=== PATIENT | male | born 1990 | race Caucasian/White ===

== ENCOUNTER 2016-10-13 14:17 | Observation (INO) | payer OTHER ==
--- NOTE | ~2016-10-13 | CT2 ---
[facility] A Service of [facility] RADIOLOGY TEXT RESULTS PATIENT: MARCO TAI LOCATION: [facility] : 91 UNIT #: [id number] AGE: [address]: Jaz Hansen MD SEX: M ORDER DR: [id number] [facility] [address] [place], [place] [address] [id number] I MR#: [id number] Acc #: [id number] NAME: MARCO TAI : 1990 SEX: M STUDY DATE/TIME: 10/13/2016 16:20 UNIT: [facility] ROOM: 221 STUDY DESCRIPTION: CT Abd and Pelv W Cont Attending Physician: Jaz Hansen M.D. Ordering Physician: Kwadwo Guzman M.D. Primary Care Physician: David Fontanez M.D. MEDICAL IMAGING REPORT This report is preliminary unless electronic signature is present EXAM CT abdomen and pelvis with contrast INDICATION Right lower quadrant abdominal pain beginning yesterday. PROCEDURE Contrast-enhanced CT of the abdomen and pelvis. 100 mL of Isovue-370. This CT examination was performed with one or more of the following radiation dose reduction techniques: automatic exposure control, adjustment of mA and/or kV according to patient size, and iterative reconstruction. COMPARISON None. FINDINGS ABDOMEN WITH CONTRAST: Included lung bases are clear. Liver measures 22.2 cm. Hepatic steatosis. The spleen, kidneys, adrenal glands, pancreas, gallbladder unremarkable. The bowel loops are nondilated. The appendix is prominent measuring up to 9 mm. It shows mild inflammatory change. No abscess. PELVIS WITH CONTRAST: No pelvic mass or fluid. No aggressive appearing bone lesion. IMPRESSION 1. Mild or early acute appendicitis. No evidence for abscess. 2. Hepatomegaly with steatosis. Dictated by... Haris Ghosh M.D. [facility] A Service of [facility] RADIOLOGY TEXT RESULTS PATIENT: MARCO TAI LOCATION: [facility] : 91 UNIT #: [id number] AGE: [address]: Jaz Hansen MD SEX: M ORDER DR: THIS IS AN ELECTRONICALLY VERIFIED REPORT Haris Ghosh M.D. at 10/14/2016 7:40 AM SHAGUFTA/sapphire TD: 10/14/2016 06:34 JOB #: [id number] MEDICAL IMAGING REPORT Page 1 of 1 COPY
--- NOTE | ~2016-10-13 | HP ---
Unit #: [id number] #: [id number] Patient: MARCO TAI [id number] [address] [place], [place] [address] [id number] I MR#: [id number] NAME: MARCO TAI ROOM: 221 Age: 26 Sex: M Admission Date: 10/13/2016 : 1990 Attending Physician: Jaz Hansen M.D. Primary Care Physician: David Fontanez M.D. HISTORY AND PHYSICAL CHIEF COMPLAINT Abdominal pain. PRESENT ILLNESS The patient is a 26-year-old white male who was normally in good health up until two days ago when he developed some vague central abdominal pains. The pain became worse and he presented to the emergency room yesterday with complaints of nausea, vomiting and central abdominal pain. Since then, the pain shifted more to the right lower quadrant of his abdomen. He has had no previous similar symptoms. He has had no recent URI, no urinary tract symptoms and no other illnesses. PAST MEDICAL HISTORY Serious illnesses - none. PAST SURGICAL HISTORY Surgery in the past - he has had nasal surgery. Also, history of a pelvic fracture that was minor. MEDICATIONS None chronic. ALLERGIES None known. TRANSFUSION None in the past. FAMILY HISTORY Noncontributory. SOCIAL HISTORY The patient is single, lives at home with his family, has a normally good appetite. No recent weight change. he smokes approximately a pack of cigarettes per day. He is a nondrinker. Immunizations are up-to-date. REVIEW OF SYSTEMS Twelve system review has been performed which is unremarkable except for that noted in present illness. PHYSICAL EXAMINATION VITAL SIGNS: Temperature on admission 97.9, pulse 84, respirations 16, Unit #: [id number] #: [id number] Patient: MARCO TAI blood pressure 141/85. GENERAL DESCRIPTION: The patient is a well developed, muscular 26-year-old white male in no acute distress. HEENT: Unremarkable. NECK: Supple. CHEST: There is equal bilateral expansion with bilateral equal breath sounds. LUNGS: Clear bilaterally. HEART: Regular rhythm without murmurs or gallops. There is no evidence of cardiomegaly clinically. ABDOMEN: Soft. Mild to moderately tender in the right lower quadrant without mass or organomegaly. There is no gross abdominal distention. No guarding or rebound. No evidence of ascites or hernias. Active bowel sounds are present. EXTREMITIES: Full range of motion without limitations. There is no evidence of peripheral edema. BACK EXAM: No CVA tenderness. NEUROLOGIC: Grossly intact. DIAGNOSTIC STUDIES LABORATORY: White blood cell count on admission was 17,600. Hemoglobin 16.9. Chemistries were normal. IMAGING: CT revealed evidence of probable early appendicitis without perforation or abscess formation. IMPRESSION The patient has early appendicitis. PLAN I am going to go ahead with laparoscopic appendectomy under general anesthesia. I have discussed this surgery including the risks including that of bleeding, infection and abscess formation. The patient understands and consents. Dictated by Chris Sierra Jr., M.D. FLAKO/marco antonio TD: 10/14/2016 06:26 JOB #: [id number] HISTORY AND PHYSICAL Page 1 of 1 X Chris Sierra MD X HISTORY AND PHYSICAL
--- NOTE | ~2016-10-13 | OR ---
Unit #: [id number] #: [id number] Patient: MARCO TAI [id number] [address] [place], [place] [address] [id number] I MR#: [id number] NAME: MARCO TAI ROOM: 221 Date of Procedure: 10/14/2016 Admission Date: 10/13/2016 Surgeon: Flo Chapman M.D. : 1990 Attending Physician: Chris Sierra Jr., M.D. Primary Care Physician: David Fontanez M.D. OPERATIVE REPORT PREOPERATIVE DIAGNOSIS Appendicitis. POSTOPERATIVE DIAGNOSIS Appendicitis. PROCEDURE PERFORMED Laparoscopic appendectomy. SPECIAL EDUCATION INSTRUCTOR Leif Roldan M.D. ANESTHESIA General endotracheal anesthesia. ESTIMATED BLOOD LOSS 100 mL. IV FLUIDS 800 crystalloid. COMPLICATIONS None. INDICATIONS FOR PROCEDURE The patient is a 26-year-old gentleman who presents with what appears to be appendicitis. DESCRIPTION OF PROCEDURE The patient was taken to the operating theater and placed in supine position. General anesthesia was induced. The abdomen was prepped and draped. An infraumbilical incision was then made. A Veress needle was placed intra-abdominally. The abdomen was insufflated to 15 mmHg with CO2. I then placed a 5-mm port in the umbilicus. I then placed a right lower quadrant 10 mm, left lower quadrant 5 mm. General inspection of the abdomen revealed some yellowish infected type fluid. The appendix was identified. This was somewhat retroperitoneal. I was able to mobilize this without too much difficulty with Bovie electrocautery. I then mobilized it free of its surrounding adhesions. DENNIS stapler was fired across the mesoappendix as well as the base of the appendix. There was some hemorrhage from the appendiceal artery. This was controlled with some 10 mm clips. We then irrigated thoroughly with normal saline. I Unit #: [id number] #: [id number] Patient: MARCO TAI placed the appendix in an Endobag and removed this. We then removed our ports, closed the fascia with 0 Vicryl and skin with 4-0 Vicryl. The patient tolerated the procedure well and sent to recovery room in good condition. Dictated by... Michelle CunhaO/ruslan TD: 10/15/2016 05:15 JOB #: [id number] OPERATIVE REPORT Page 1 of 1 X Flo Chapman MD PROCEDURE OPERATIVE NOTE
--- NOTE | ~2016-10-13 | DS ---
Unit #: [id number] #: [id number] Patient: MARCO TAI [id number] [address] [address] [id number] I MR#: [id number] NAME: MARCO TAI ROOM: 221 Age: 26 Sex: M Admission Date: 10/13/2016 : 1990 Discharge Date: 10/15/2016 Attending Physician: Chris Sierra Jr., M.D. Primary Care Physician: David Fontanez M.D. DISCHARGE SUMMARY DIAGNOSIS Appendicitis. PROCEDURE Laparoscopic appendectomy. HOSPITAL COURSE The patient is a 26-year-old gentleman who suffered with appendicitis. He underwent laparoscopic appendectomy. Postop course was uncomplicated. DISPOSITION The patient will be discharged home. RECOMMENDATIONS He is to follow a regular diet as tolerated. ACTIVITY Activity levels were discussed. FOLLOWUP He is to follow up with Dr. Chapman in two weeks. MEDICATIONS Medications are his regular home medications and [place] 7.5 mg q.4 p.r.n. Dictated by... Michelle Cunha/marco antonio TD: 10/15/2016 11:43 JOB #: [id number] Unit #: [id number] #: [id number] Patient: MARCO TAI DISCHARGE SUMMARY Page 1 of 1 X Flo Chapman MD X DISCHARGE SUMMARY
[2016-10-13 15:08] LABS: BASOPHIL# 0.1 X10e3 (0-0.3); BASOPHIL% 0.5 % (0-2.5); EOSINOPHIL% 0.3 % (0.0-7.0); HEMATOCRIT 49.3 % (38.0-50.0); HEMOGLOBIN 16.9 gm/dL (13.0-16.0); LYMPHOCYTE# 1.4 X10e3 (1.0-3.5); LYMPHOCYTE% 8.1 % (17.0-45.0); MEAN CELL VOLUME 89.2 FL (83-96); MEAN CORPUSCULAR HEMOGLOBIN 30.5 PG (28-34); MEAN CORPUSCULAR HGB CONC 34.3 g/dL (30-36); MEAN PLATELET VOLUME 8.9 FL (6.5-11.5); MONOCYTE# 0.8 X10e3 (0-1.0); MONOCYTE% 4.6 % (3.0-12.0); NEUTROPHIL# 15.2 X10e3 (1.5-7.1); NEUTROPHIL% 86.5 % (40-75); PLATELET COUNT 210 X10e3 (140-420); RED BLOOD COUNT 5.52 X10e (3.90-5.60); RED CELL DISTRIBUTION WIDTH 12.3 % (11.0-15.5); WHITE BLOOD COUNT 17.6 X10e3 (4.0-10.5)
[2016-10-13 15:10] LABS: DIFF IND YES
[2016-10-13 15:28] LABS: ALBUMIN SERUM 4.8 g/dL (3.5-5.0); BILIRUBIN, DIRECT 0.1 mg/dL (0.0-0.2); BILIRUBIN,INDIRECT 0.6 mg/dL (0.0-0.9); BILIRUBIN,TOTAL 0.7 mg/dL (0.2-2.0); BUN/CREATININE RATIO 11.53; CALCIUM SERUM 9.5 mg/dL (8.4-10.2); CREATININE SERUM 1.3 mg/dL (0.6-1.4); GLOM FILT RATE Estimated 75.9 mL/min (>60); POTASSIUM 3.9 mmol/L (3.5-5.1); PROTEIN TOTAL SERUM 8.2 g/dL (6.0-8.3)
[2016-10-13 15:29] LABS: PLATELET ESTIMATE NORMAL (NORMAL); RBC NORMAL YES
[2016-10-13 16:46] LABS: URINE SOURCE CLEAN CATCH
[2016-10-13 16:50] LABS: URINE APPEARANCE CLEAR; URINE BILIRUBIN NEG (NEG); URINE BLOOD NEG (NEG); URINE COLOR YELLOW; URINE GLUCOSE NEG (NEG); URINE KETONE NEG (NEG); URINE LEUKOCYTE ESTERASE NEG (NEG); URINE NITRATE NEG (NEG); URINE PROTEIN NEG (NEG); URINE UROBILINOGEN 0.2 MG/DL (NEG)
[2016-10-13 16:53] LABS: CULTURE INDICATED? NO
[2016-10-13] MEDS ORDERED: NO MEDICATIONS (17:16)
[2016-10-14 06:58] LABS: BASOPHIL% 0.4 % (0-2.5); EOSINOPHIL# 0.2 X10e3 (0-0.7); EOSINOPHIL% 1.4 % (0.0-7.0); HEMATOCRIT 45.5 % (38.0-50.0); HEMOGLOBIN 15.5 gm/dL (13.0-16.0); MEAN CELL VOLUME 90.1 FL (83-96); MEAN CORPUSCULAR HEMOGLOBIN 30.7 PG (28-34); MEAN PLATELET VOLUME 9.1 FL (6.5-11.5); MONOCYTE# 0.8 X10e3 (0-1.0); MONOCYTE% 7.3 % (3.0-12.0); NEUTROPHIL# 7.4 X10e3 (1.5-7.1); NEUTROPHIL% 64.9 % (40-75); PLATELET COUNT 180 X10e3 (140-420); RED BLOOD COUNT 5.05 X10e (3.90-5.60); RED CELL DISTRIBUTION WIDTH 12.7 % (11.0-15.5); WHITE BLOOD COUNT 11.3 X10e3 (4.0-10.5)
[2016-10-14 07:04] LABS: DIFF IND NO
[2016-10-14 16:32] LABS: HEMATOCRIT 45.6 % (38.0-50.0); HEMOGLOBIN 15.5 gm/dL (13.0-16.0)
[2016-10-15 06:13] LABS: HEMATOCRIT 41.6 % (38.0-50.0); MEAN CELL VOLUME 89.7 FL (83-96); MEAN CORPUSCULAR HEMOGLOBIN 30.2 PG (28-34); MEAN CORPUSCULAR HGB CONC 33.7 g/dL (30-36); MEAN PLATELET VOLUME 9.1 FL (6.5-11.5); RED BLOOD COUNT 4.63 X10e (3.90-5.60); RED CELL DISTRIBUTION WIDTH 12.4 % (11.0-15.5)
== END 2016-10-15 13:27 | disposition home or self-care (01) ==
LOC: CED 14:17 → C2A 17:05 → CED 20:00 → C2A 20:00
PROVIDERS: Surgery
DX: K35.80 Unspecified acute appendicitis (principal); F17.210 Nicotine dependence, cigarettes, uncomplicated; R16.0 Hepatomegaly, not elsewhere classified; K76.0 Fatty (change of) liver, not elsewhere classified
CPT/HCPCS: 36415; 74177; 80048; 80076; 81003; 82947; 83690; 85014; 85018; 85025; 85027; 88304; 96361; 96374; 96375; 99285; G0378; J0330; J1100; J1170; J1885; J2250; J2270; J2405; J2543; J2710; J3010; Q9967